=== PATIENT | male | born 1965 | race Caucasian/White ===

== ENCOUNTER 2023-07-16 18:18 | Emergency (ER) | payer OTHER ==
[2023-07-16 18:25] VITALS: BMI 69.0
[2023-07-16 20:18] VITALS: BP 120/75; PULSE 69; RESP 20; TEMP 97.4
[2023-07-16] MEDS ORDERED: FLUORESCEIN NA 1 EA STRIP OD ONE (21:22)
[2023-07-16] MEDS ORDERED: TETRACAINE 0.5% OPHTH SOLN 2 ML BOTTLE OD ONE (21:22)
[2023-07-16] MEDS ORDERED: FLUORESCEIN NA 1 EA STRIP ONE (21:23)
[2023-07-16] MEDS ORDERED: TETRACAINE 0.5% OPHTH SOLN 2 ML BOTTLE ONE (21:24)
[2023-07-16] MEDS ORDERED: valACYclovir HCL 500 MG TABLET (FP) PO ONE (21:44)
[2023-07-16] MEDS ORDERED: predniSONE 20 MG TABLET (UD) PO ONE (21:44)
[2023-07-16] MEDS ORDERED: predniSONE 20 MG TABLET (UD) ONE (21:46)
[2023-07-16] MEDS ORDERED: valACYclovir HCL 500 MG TABLET (FP) ONE (21:46)
== END 2023-07-16 22:20 | disposition home or self-care (01) ==
LOC: JER 18:18
DX: G51.0 Bell's palsy (principal); J32.9 Chronic sinusitis, unspecified; R29.810 Facial weakness; H93.231 Hyperacusis, right ear; H93.8X9 Other specified disorders of ear, unspecified ear; R20.2 Paresthesia of skin; R51.9 Headache, unspecified
CPT/HCPCS: 70480-TC; 93005; 93010; 99284-25

== ENCOUNTER 2023-07-25 17:06 | Emergency (ER) | payer OTHER ==
[2023-07-25 17:31] VITALS: BP 138/84; PULSE 98; RESP 20; TEMP 98.2; BMI 31.8
[2023-07-25] MEDS ORDERED: FLUORESCEIN NA 1 EA STRIP OD ONE (17:55)
[2023-07-25] MEDS ORDERED: TETRACAINE 0.5% HCL 0.6ML DROPPER.BOTTLE OD ONE (17:55)
[2023-07-25] MEDS ORDERED: FLUORESCEIN NA 1 EA STRIP ONE (17:59)
[2023-07-25] MEDS ORDERED: TETRACAINE 0.5% OPHTH SOLN 2 ML BOTTLE ONE (17:59)
== END 2023-07-25 18:56 | disposition home or self-care (01) ==
LOC: JER 17:06
DX: G51.0 Bell's palsy (principal); R29.810 Facial weakness
CPT/HCPCS: 99283-25